=== PATIENT | female | born 1955 | race Caucasian/White ===

== ENCOUNTER → 2016-10-22 | Outpatient (CLI) | payer OTHER ==
[~2016-10-22] MED LIST: AMLO-110 PO; ASPI81TA28 PO; ATOR-26 PO; CLTP PO; LISI40TA PO; METO50TA16 PO; MULT-506 PO; NTRGSL/4 UT; OMEG10007 PO; SYN88 PO
[2016-10-22 09:34] LABS: HEMATOCRIT 39.2 % (37-47); MEAN CELL VOLUME 86.3 fL (80-100); MEAN CORPUSCULAR HEMOGLOBIN 28.6 pg (25-34); MEAN CORPUSCULAR HGB CONC 33.2 g/dl (32-36); MEAN PLATELET VOLUME 10.7 fL (7.4-10.4); PLATELET COUNT 220 K/uL (130-400); RED BLOOD COUNT 4.54 M/uL (4.2-5.4); WHITE BLOOD COUNT 6.76 K/uL (4.8-10.8)
[2016-10-22 09:50] LABS: ALT/SGPT 25 U/L (12-78); BLOOD UREA NITROGEN 19 mg/dl (7-18); BUN/CREATININE RATIO 17.1 (10-20); CALCIUM 9.7 mg/dl (8.5-10.1); CARBON DIOXIDE 26 mmol/L (21-32); CHLORIDE 108 mmol/L (98-107); CHOLESTEROL 146 mg/dl (0-200); GLUCOSE 93 mg/dl (70-99); POTASSIUM 3.9 mmol/L (3.5-5.1); SODIUM 144 mmol/L (136-145); TRIGLYCERIDES 252 mg/dl (0-150); VERY LOW DENSITY LIPOPROT CALC 50 mg/dl
[2016-10-22 10:00] LABS: ALKALINE PHOSPHATASE 179 U/L (45-117); AST/SGOT 24 U/L (15-37); CHOLESTEROL/HDL RATIO 2.7; HDL CHOLESTEROL 55 mg/dl; LDL CHOLESTEROL CALCULATED 41 mg/dl; THYROID STIMULATING HORMONE 0.326 uIu/ml (0.300-4.500)
== END | disposition home or self-care (01) ==
LOC: C.LAB 07:32
PROVIDERS: ATTEND Internal Medicine
DX: I25.10 Atherosclerotic heart disease of native coronary artery without angina pectoris (principal); E03.9 Hypothyroidism, unspecified

== ENCOUNTER → 2017-04-27 | Outpatient (CLI) | payer OTHER ==
[2017-04-27 12:34] LABS: ALT/SGPT 31 U/L (12-78); BLOOD UREA NITROGEN 19 mg/dl (7-18); BUN/CREATININE RATIO 17.4 (10-20); CALCIUM 9.3 mg/dl (8.5-10.1); CARBON DIOXIDE 27 mmol/L (21-32); CHLORIDE 108 mmol/L (98-107); CHOLESTEROL 158 mg/dl (0-200); GLUCOSE 96 mg/dl (70-99); POTASSIUM 3.7 mmol/L (3.5-5.1); SODIUM 143 mmol/L (136-145); TRIGLYCERIDES 251 mg/dl (0-150); VERY LOW DENSITY LIPOPROT CALC 50 mg/dl
[2017-04-27 12:45] LABS: ALB/GLOB RATIO 0.9 (0.9-2); ALKALINE PHOSPHATASE 133 U/L (45-117); AST/SGOT 21 U/L (15-37); CHOLESTEROL/HDL RATIO 3.4; HDL CHOLESTEROL 47 mg/dl; LDL CHOLESTEROL CALCULATED 61 mg/dl; THYROID STIMULATING HORMONE 0.215 uIu/ml (0.300-4.500)
== END | disposition home or self-care (01) ==
LOC: C.LABBFT 09:02
PROVIDERS: ATTEND Internal Medicine
DX: E78.00 Pure hypercholesterolemia, unspecified (principal); E03.9 Hypothyroidism, unspecified

== ENCOUNTER → 2017-12-10 | Outpatient (CLI) | payer BC ==
[2017-12-10 17:05] LABS: HEMATOCRIT 38.8 % (37-47); HEMOGLOBIN 12.8 g/dL (12.0-16.0); MEAN CORPUSCULAR HEMOGLOBIN 29.4 pg (25-34); MEAN PLATELET VOLUME 10.4 fL (7.4-10.4); PLATELET COUNT 232 K/uL (130-400); RED CELL DISTRIBUTION WIDTH CV 13.8 % (11.5-14.5); RED CELL DISTRIBUTION WIDTH SD 44.9 fL (36.4-46.3); WHITE BLOOD COUNT 5.79 K/uL (4.8-10.8)
[2017-12-10 17:24] LABS: ALBUMIN 3.8 gm/dl (3.4-5.0); ALT/SGPT 42 U/L (12-78); AST/SGOT 29 U/L (15-37); BLOOD UREA NITROGEN 15 mg/dl (7-18); CALCIUM 9.3 mg/dl (8.5-10.1); CARBON DIOXIDE 28 mmol/L (21-32); CHOLESTEROL 130 mg/dl (0-200); CREATININE 1.11 mg/dl (0.60-1.20); GLUCOSE 113 mg/dl (70-99); POTASSIUM 3.7 mmol/L (3.5-5.1); SODIUM 140 mmol/L (136-145); TOTAL PROTEIN 7.8 gm/dl (6.4-8.2)
[2017-12-10 17:35] LABS: ALKALINE PHOSPHATASE 148 U/L (45-117); LDL CHOLESTEROL CALCULATED 28 mg/dl
== END | disposition home or self-care (01) ==
LOC: C.LABBFT 13:59
PROVIDERS: ATTEND Internal Medicine
DX: E78.00 Pure hypercholesterolemia, unspecified (principal); E03.9 Hypothyroidism, unspecified; I10 Essential (primary) hypertension

== ENCOUNTER 2017-12-29 11:32 | Day surgery (SDC) | payer BC ==
[~2017-12-29] VITALS: Ht 162.6 cm; Wt 78.0 kg
[~2017-12-29 11:32] MED LIST changes: +LACTATED RINGER'S 1000ML IV SCH
[2017-12-29 12:36] VITALS: BP 154/76; PULSE 56; TEMP 37; O2SAT 96; Ht 162.6 cm; Wt 78.0 kg
[2017-12-29] MEDS ORDERED: LIDOCAINE HCL 1% 20 ML VIAL ONE (12:56)
[2017-12-29] MEDS ORDERED: BACITRACIN OINT 0.9 GM PKT ONE (14:08)
--- NOTE | 2017-12-29 14:18 | [facility] Operative Report ---
Operative Report Operative Date Dec 29, 2017. Pre-Operative Diagnosis Loop recorder end of service Post-Operative Diagnosis Same Procedure(s) Performed Loop recorder explantation Surgeon Dr. Herbert Pulmonary Specialist Surgeon(s) None Estimated Blood Loss 2 cc Findings Successful explantation Specimens Loop recorder, return to [facility] Anesthesia Local, no sedation Complication(s) None Disposition [facility] Description of Procedure After obtaining informed consent for the procedure, the patient was brought to the laboratory having had nothing by mouth after midnight. The patient was prepped and draped in the standard sterile manner for a loop recorder removal. The area was infiltrated with 1% lidocaine local anesthetic and a 1 cm incision was made through the old implant scar and carried down to the loop recorder. The loop recorder was dissected free of tissue and explanted. The incision was closed with a subcutaneous continuous closure of 4-0 Vicryl followed by running subcuticular skin closure of 4-0 Vicryl. Steri-Strips were applied and bacitracin ointment was placed on the incision. A dressing was applied. I attest to the content of the Intraoperative Record and any orders documented therein. Any exceptions are noted below.
[2017-12-29 14:25] VITALS: BP 166/77; PULSE 54; TEMP 36.6; O2SAT 98
--- NOTE | 2017-12-29 14:25 | Discharge Instructions ---
Discharge Instructions Date of Service Dec 29, 2017. Admission Loop recorder at end of service Discharge Discharge Diagnosis / Problem: Loop recorder explantation Discharge Goals Goal(s): Therapeutic intervention Activity Recommendations Activity Limitations: resume your previous activity . Instructions / Follow-Up Instructions / Follow-Up ACTIVITY RECOMMENDATIONS: * Do not raise affected arm over head for 2 weeks. SPECIAL CARE INSTRUCTIONS: * If bleeding occurs, apply direct pressure to area for 5 minutes. * Call your doctor if you have severe pain, fever, drainage or bleeding at site. * Keep dressing on and dry for 48 hours then remove. * Keep any scheduled doctor's appointment. SKIN IRRITATION: FOLLOW UP VISIT: Dr. Herbert December, 4:15 PM. Current Hospital Diet Patient's current hospital diet: Discharge Diet Recommended Diet: AHA Diet (Heart Healthy) Procedures Procedures Performed: Loop recorder explantation Pending Studies Studies pending at discharge: no Laboratory Results Lipid Panel Test 12/10/17 14:05 Range/Units Triglycerides Level 266 H 0-150 mg/dl Cholesterol Level 130 0-200 mg/dl HDL Cholesterol 49 mg/dl Cholesterol/HDL Ratio 2.7 LDL Cholesterol, Calculated 28 mg/dl Medical Emergencies . Who to Call and When: Medical Emergencies: If at any time you feel your situation is an emergency, please call 911 immediately. . Non-Emergent Contact Non-Emergency issues call your: Primary Care Provider . . "Provider Documentation" section prepared by Tj Herbert. .
== END 2017-12-29 14:45 | disposition home or self-care (01) ==
LOC: C.ACU 11:32
PROVIDERS: ATTEND Internal Medicine Cardiovascular Disease
DX: Z45.89 Encounter for adjustment and management of other implanted devices (principal); I25.10 Atherosclerotic heart disease of native coronary artery without angina pectoris; D64.9 Anemia, unspecified; E78.00 Pure hypercholesterolemia, unspecified; I10 Essential (primary) hypertension; E03.9 Hypothyroidism, unspecified; I47.1 Supraventricular tachycardia; L40.9 Psoriasis, unspecified; Z82.49 Family history of ischemic heart disease and other diseases of the circulatory system; Z81.8 Family history of other mental and behavioral disorders; Z82.62 Family history of osteoporosis; Z83.6 Family history of other diseases of the respiratory system; Z80.49 Family history of malignant neoplasm of other genital organs; Z80.3 Family history of malignant neoplasm of breast; Z87.891 Personal history of nicotine dependence; Z79.899 Other long term (current) drug therapy; Z79.82 Long term (current) use of aspirin